=== PATIENT | female | born 1945 | race Caucasian/White ===

== ENCOUNTER → 2022-10-15 12:57 | Outpatient (BNVA) | payer MEDICARE, SELFPAY | PROVIDERS: PCP Internal Medicine; Visit Provider Nurse Practitioner Family | DX: G25.81 Restless legs syndrome (principal); G47.9 Sleep disorder, unspecified; R40.0 Somnolence; R06.83 Snoring | CPT/HCPCS: 99202 ==

== ENCOUNTER → 2022-11-14 19:30 | Outpatient (REF) | payer MEDICARE, SELFPAY | LOC: HO.SL 19:30 | PROVIDERS: Visit Provider Nurse Practitioner Family | DX: R06.83 Snoring (principal); R40.0 Somnolence; I10 Essential (primary) hypertension; G25.81 Restless legs syndrome | CPT/HCPCS: 95810 ==

== ENCOUNTER 2023-10-01 12:18 | Outpatient (AMB) | payer MEDICARE, SELFPAY ==
[2023-10-01 15:14] VITALS: BP 122/72; PULSE 74; TEMP 36.6; O2SAT 95
--- NOTE | 2023-10-01 15:17 | MHC.OFFWIV ---
Intake Vital Signs 10/01/23 15:14 Height 5 ft BP 122/72 Blood Pressure Location Rt brachial Position Sitting Pulse 74 Pulse Source Pulse Oximeter Temp 97.9 F Temp Source Temporal Artery Scan Pulse Oximetry (%) 95 Oxygen Delivery Method Room Air Intake Visit Reasons: EST/ears blocked([phone]) Intake Note: pt is here for c.o ear blockage, can't hear Patient Tobacco Use Status: Never used Tobacco Allergies vancomycin Allergy (Severe, Verified 10/01/23 15:33) rash peniciliin Allergy (Severe, Uncoded 10/01/23 15:33) Rash Medication List - Last Reconciled 10/01/23 by Kehinde Sanchez MD albuterol sulfate 90 mcg/actuation 1 inh inhalation QID bupropion HCl 150 mg PO QAM duloxetine 60 mg PO DAILY lorazepam (Ativan) 1 mg PO DAILY PRN losartan 50 mg PO DAILY omeprazole 20 mg PO BID ropinirole 2 mg PO BEDTIME simvastatin 20 mg PO BEDTIME Do you need a note to return to daycare/school/sports/work: No HPI EST/ears blocked([phone]) HPI Details Patient presents for a sick visit. Reporting symptoms of sinus congestion, sore throat and difficulty swallowing. Low-grade fever. No family member is sick. No recent travel. Patient reports symptoms of malaise and fatigue. [facility] Surgical History (Updated 10/15/22 @ 13:21 by NATASHA Lopez) H/O shoulder surgery S/P hip replacement Social History (Updated 10/15/22 @ 13:21 by NATASHA Lopez) Alcohol intake: never Patient Tobacco Use Status: Never used Tobacco Physical Exam Vital Signs: Last Vital Signs Temp 97.9 F 10/01/23 15:14 Pulse 74 10/01/23 15:14 BP 122/72 10/01/23 15:14 Pulse Ox 95 10/01/23 15:14 Oxygen Delivery Method Room Air 10/01/23 15:14 Const General: cooperative and healthy appearing Nutritional Appearance: well nourished Orientation/consciousness: patient oriented x3 Limitations: no limitations HEENT Head: Yes normal to inspection Eyes General: appearance normal, both eyes and all related structures Neck Neck: Yes normal visual inspection Chest Chest palpation & inspection: normal palpation of entire chest wall Resp Effort & Inspection: normal respiratory effort Neuro General: patient oriented x3 Assessment & Plan Assessment & Plan (1) Upper respiratory tract infection: Code(s): J06.9 - Acute upper respiratory infection, unspecified Plan: Antibiotics ordered. Increase fluid intake. Tylenol for aches and pains. If symptoms worsen, follow-up here for a recheck. Coding Level of Care Code Est Pt Level 3 (41036) Diagnoses Upper respiratory tract infection J06.9
== END 2023-10-01 15:33 | disposition home or self-care (01) ==
PROVIDERS: PCP Internal Medicine; Visit Provider Internal Medicine
DX: J06.9 Acute upper respiratory infection, unspecified (principal)
CPT/HCPCS: 99213